=== PATIENT | male | born 1960 | race Caucasian/White ===

== ENCOUNTER 2021-07-19 12:21 | Outpatient (CLI) | payer BC, OTHER ==
[2021-07-19 13:16] LABS: Hemoglobin 14.9 g/dL (13.5-17.5); Mean Corpuscular HGB CONC 34.5 g/dL (32.0-36.0); Mean Corpuscular Hemoglobin 29.9 pg (27.0-33.0); Mean Corpuscular Volume 86.6 fl (81.2-95.1); Mean Platelet Volume 8.4 fl (7.4-10.4); Platelet Count 281 10x3/uL (150-450); RBC Distribution Width 14.3 % (11.5-14.5); Red Blood Cell (RBC) Count 4.99 10x6/uL (4.32-5.72); White Blood Cell (WBC) Count 9.5 10x3/uL (3.5-10.5)
[2021-07-19 13:31] LABS: PTT 26.8 sec (22.0-33.0)
[2021-07-19 13:32] LABS: Anion Gap 15 mmol/L (10-20); BUN (Urea Nitrogen) 8 mg/dL (8.4-25.7); Calc. Creatinine Clearance 0 mL/min (70-130); Calcium 10.1 mg/dL (7.8-10.44); Carbon Dioxide 23 mmol/L (23-31); Chloride 107 mmol/L (98-107); Glucose 93 mg/dL (80-115); Potassium 4.2 mmol/L (3.5-5.1); Sodium 141 mmol/L (136-145)
[2021-07-19 14:37] LABS: SARS-CoV-2 NAA Rapid Test Not Detected (NotDetected)
== END 2021-07-19 12:22 | disposition home or self-care (01) ==
LOC: CSHLAB 12:21
PROVIDERS: ATTEND Specialist
DX: Z01.812 Encounter for preprocedural laboratory examination (principal); Z20.822 Contact with and (suspected) exposure to COVID-19
CPT/HCPCS: 80048; 85027; 85610; 85730; U0002

== ENCOUNTER 2021-07-20 08:03 | Day surgery (SDC) | payer BC ==
[2021-07-20] MEDS ORDERED: Lidocaine 1% (PF) 30 ML VIAL ONE (08:09)
[2021-07-20] MEDS ORDERED: Nitroglycerin 50 MG/250 ML BOT 250 ML ONE (08:09)
[2021-07-20] MEDS ORDERED: Heparin 10,000 UNITS/ 10 ML VIAL ONE (08:09)
[2021-07-20] MEDS ORDERED: Fentanyl 100 MCG/2 ML VIAL ONE (08:10)
[2021-07-20] MEDS ORDERED: Adenosine 6 MG/2 ML VIAL ONE (08:10)
[2021-07-20] MEDS ORDERED: Sodium Chloride 0.9% 1,000 ML ONE (08:11)
[2021-07-20] MEDS ORDERED: Midazolam HCl 2 mg/2 ml Vial ONE (08:11)
[2021-07-20] MEDS ORDERED: Ascorbic Acid 500 mg Chewable Tablet ONE (08:44)
[2021-07-20] MEDS ORDERED: Aspirin 325 MG TAB ONE (08:45)
[2021-07-20 08:57] VITALS: BP 133/77; TEMP 97.4
[2021-07-20] MEDS ORDERED: Atropine Sulfate 0.4 mg/1 ml Vial ONE (10:13)
== END 2021-07-20 14:40 | disposition home or self-care (01) ==
LOC: CSHSDC 08:03
PROVIDERS: ATTEND Specialist
DX: I25.10 Atherosclerotic heart disease of native coronary artery without angina pectoris (principal); R94.39 Abnormal result of other cardiovascular function study; I71.4 Abdominal aortic aneurysm, without rupture; I11.0 Hypertensive heart disease with heart failure; I50.42 Chronic combined systolic (congestive) and diastolic (congestive) heart failure; I73.9 Peripheral vascular disease, unspecified; E78.5 Hyperlipidemia, unspecified; F17.210 Nicotine dependence, cigarettes, uncomplicated
CPT/HCPCS: 75625; 75710; 75736; 93458; 99152; 99153; G0278; J0153; J0461; J1644; J2001; J2250; J3010; J7050

== ENCOUNTER 2021-11-18 11:38 | Outpatient (CLI) | payer BC | END 2021-11-18 11:39 | disposition home or self-care (01) | LOC: CSHRAD 11:38 | PROVIDERS: ATTEND Nurse Practitioner | DX: I50.9 Heart failure, unspecified (principal); Z95.810 Presence of automatic (implantable) cardiac defibrillator; T82.897A Other specified complication of cardiac prosthetic devices, implants and grafts, initial encounter | CPT/HCPCS: 71046 ==

== ENCOUNTER 2021-12-27 13:24 | Outpatient (CLI) | payer BC ==
[2021-12-27 15:02] LABS: Hemoglobin 15.4 g/dL (13.5-17.5); Mean Corpuscular HGB CONC 34.4 g/dL (32.0-36.0); Mean Corpuscular Hemoglobin 29.7 pg (27.0-33.0); Mean Corpuscular Volume 86.5 fl (81.2-95.1); Mean Platelet Volume 8.1 fl (7.4-10.4); Platelet Count 280 10x3/uL (150-450); RBC Distribution Width 14.2 % (11.5-14.5); Red Blood Cell (RBC) Count 5.18 10x6/uL (4.32-5.72)
[2021-12-27 15:10] LABS: Anion Gap 16 mmol/L (10-20); BUN (Urea Nitrogen) 13 mg/dL (8.4-25.7); Calc. Creatinine Clearance 0 mL/min (70-130); Calcium 9.5 mg/dL (7.8-10.44); Carbon Dioxide 22 mmol/L (23-31); Chloride 104 mmol/L (98-107); Glucose 113 mg/dL (80-115); Potassium 4.1 mmol/L (3.5-5.1); Sodium 138 mmol/L (136-145)
[2021-12-27 15:11] LABS: Prothrombin Time 10.9 sec (9.5-12.1)
[2021-12-28 00:42] LABS: SARS-CoV-2 PCR by NAA Not Detected (NotDetected)
== END 2021-12-27 13:25 | disposition home or self-care (01) ==
LOC: CSHLAB 13:24
PROVIDERS: ATTEND Internal Medicine Cardiovascular Disease
DX: Z01.812 Encounter for preprocedural laboratory examination (principal); Z20.822 Contact with and (suspected) exposure to COVID-19
CPT/HCPCS: 80048; 85027; 85610; U0003; U0005

== ENCOUNTER 2021-12-29 07:13 | Day surgery (SDC) | payer BC ==
[2021-12-29] MEDS ORDERED: Vancomycin HCl 500 MG VIAL ONE (08:24)
[2021-12-29] MEDS ORDERED: CEFAZOLIN 1 GM VIAL ONE ×2 (09:33→09:51)
[2021-12-29] MEDS ORDERED: Fentanyl 100 MCG/2 ML VIAL ONE (09:53)
[2021-12-29] MEDS ORDERED: Midazolam HCl 2 mg/2 ml Vial ONE (09:55)
[2021-12-29] MEDS ORDERED: PROPOFOL 20 ML ONE (09:59)
[2021-12-29] MEDS ORDERED: Gentamicin 80 MG/2 ML VIAL ONE (10:00)
[2021-12-29] MEDS ORDERED: Lidocaine 1% (PF) 30 ML VIAL ONE (10:43)
[2021-12-29] MEDS ORDERED: Sodium Chloride 0.9% 1,000 ML ONE (10:45)
[2021-12-29] MEDS ORDERED: PROPOFOL 200 MG/20 ML VIAL ONE (11:00)
[2021-12-29] MEDS ORDERED: Propofol 1,000 MG/100 ML VIAL IV ONE (11:36)
[2021-12-29] MEDS ORDERED: Acetaminophen 500 MG TAB ONE (14:26)
[2021-12-30] MEDS ORDERED: FLU VACC QS2021-22(6MOS UP)/PF 60 MCG/0.5 ML SYRINGE IM ONE (09:30)
== END 2021-12-29 16:04 | disposition home or self-care (01) ==
LOC: CSHSDC 07:13
PROVIDERS: ATTEND Internal Medicine Cardiovascular Disease
DX: T82.120A Displacement of cardiac electrode, initial encounter (principal); T82.110A Breakdown (mechanical) of cardiac electrode, initial encounter; I11.0 Hypertensive heart disease with heart failure; I50.22 Chronic systolic (congestive) heart failure; I42.8 Other cardiomyopathies; I25.10 Atherosclerotic heart disease of native coronary artery without angina pectoris; I73.9 Peripheral vascular disease, unspecified; K21.9 Gastro-esophageal reflux disease without esophagitis; E03.9 Hypothyroidism, unspecified; F41.9 Anxiety disorder, unspecified; F17.210 Nicotine dependence, cigarettes, uncomplicated; F10.21 Alcohol dependence, in remission; Z79.899 Other long term (current) drug therapy; Z79.82 Long term (current) use of aspirin
CPT/HCPCS: 33224; 33234; 71045; C1763; C1769; C1900; J0690; J1580; J2001; J2250; J2704; J3010; J3370; J7050